=== PATIENT | male | born 2000 | race Caucasian/White ===

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

== ENCOUNTER → 2022-10-15 | Outpatient (CLI) | payer MEDICAID ==
[~2022-10-15] MED LIST: HYOS0.1283 SL
--- NOTE | 2022-10-15 11:11 | Diagnostic Imaging Report ---
INDICATION: Back pain. FINDINGS: 3 views. The lumbosacral spine shows good alignment. Body height and disc spaces are well-maintained. No evidence of pars defects. SI joints are symmetrical and normal. IMPRESSION: Normal lumbosacral spine. Dictated by: Dictated on workstation # [id number]
== END ==
LOC: RAD FS 10:45
PROVIDERS: ATTEND Nurse Practitioner Family
DX: M54.9 Dorsalgia, unspecified (principal)
CPT/HCPCS: 72100